=== PATIENT | female | born 1940 | race Caucasian/White ===

== ENCOUNTER 2017-01-22 10:30 | Outpatient (CLI) | payer MEDICARE, OTHER ==
--- NOTE | 2017-01-28 12:04 | Mammography Report ---
EXAM: Digital screening mammogram 01/22/2017. CLINICAL INDICATION: A 76-year-old with family history of breast cancer for screening. COMPARISON: 11/2015, 11/2014, 10/2013, 10/2012, 08/2011, 08/2010, 08/2009. TECHNIQUE: Routine CC and MLO projections were obtained of the breasts. FINDINGS: Scattered fibroglandular tissue is present within the breasts. There are no dominant masses, suspicious microcalcifications, or secondary signs of malignancy. In comparison to the previous studies, there are no significant changes. ASSESSMENT: NO MAMMOGRAPHIC EVIDENCE OF MALIGNANCY. NO SIGNIFICANT INTERVAL CHANGES. RECOMMENDATION: Screening mammography is recommended annually. BIRADS category 1 - negative. STANDARD QUALIFYING STATEMENTS 1. This examination was reviewed with the aid of Computed Aided Detection (CAD). 2. A negative x-ray report should not delay biopsy if a dominant or clinically suspicious mass is present. More than 5% of cancers are not identified by x-ray. 3. Dense breasts may obscure an underlying neoplasm. TD: 01/23/2017 14:59 PEPPER
== END 2017-01-22 10:31 | disposition home or self-care (01) ==
LOC: DI.N 10:30
PROVIDERS: ATTEND Family Medicine
DX: Z12.31 Encounter for screening mammogram for malignant neoplasm of breast (principal); Z80.3 Family history of malignant neoplasm of breast
CPT/HCPCS: 77067

== ENCOUNTER 2017-01-24 15:05 | Outpatient (CLI) | payer MEDICARE, OTHER ==
[2017-01-24 14:41] LABS: ALBUMIN/GLOBULIN RATIO 1.3 (1.0-2.2); BILIRUBIN,TOTAL 0.6 mg/dL (0.2-1.0); BUN - BLOOD UREA NITROGEN 13 mg/dL (6-20); CALCIUM 9.2 mg/dL (8.5-10.3); CARBON DIOXIDE - CO2 26 mmol/L (21-32); CHLORIDE 106 mmol/L (101-111); CHOL/HDL RATIO 2.6 (<4.4); CHOLESTEROL 196 mg/dL; CREATININE 0.8 mg/dL (0.4-1.0); GFR - MDRD 70 (>89); GLUCOSE 90 mg/dL (70-100); HDL CHOLESTEROL 74 mg/dL; LDL/HDL RATIO 1.4 (<4.4); POTASSIUM 4.3 mmol/L (3.5-5.0); SODIUM 139 mmol/L (135-145); TOTAL PROTEIN 6.8 g/dL (6.7-8.2); TRIGLYCERIDES 83 mg/dL; VLDL CHOLESTEROL 17 mg/dL
[2017-01-24 14:48] LABS: THYROID STIMULATING HORMONE 6.39 uIU/mL (0.34-5.60)
== END 2017-01-24 15:06 | disposition home or self-care (01) ==
LOC: LAB.WCP 15:05
PROVIDERS: ATTEND Family Medicine
DX: Z00.00 Encounter for general adult medical examination without abnormal findings (principal); E03.9 Hypothyroidism, unspecified; D64.9 Anemia, unspecified; E55.9 Vitamin D deficiency, unspecified; K51.90 Ulcerative colitis, unspecified, without complications
CPT/HCPCS: 36415; 80053; 80061; 82306; 84439; 84443

== ENCOUNTER 2017-07-12 08:00 | Outpatient (CLI) | payer MEDICARE, OTHER | END 2017-07-12 08:01 | disposition home or self-care (01) | LOC: LAB.WCP 08:00 | PROVIDERS: ATTEND Family Medicine | DX: E03.9 Hypothyroidism, unspecified (principal) | CPT/HCPCS: 36415; 84443 ==

== ENCOUNTER 2017-09-30 15:13 | Outpatient (CLI) | payer MEDICARE, OTHER ==
--- NOTE | 2017-10-01 08:48 | DEXA Report ---
Procedure Date: 09/30/2017 Accession Number: [id number] / [id number] Procedure: DEX - Dexa Spine and/or Hip CPT Code: FULL RESULT: EXAM: DUAL EMISSION X-RAY ABSORPTIOMETRY (DXA) SCAN EXAM DATE: 09/30/2017 03:41 PM. CLINICAL HISTORY: Postmenopausal. COMPARISON: None. TECHNIQUE: Dual energy x-ray absorptiometry (DXA) was performed on a [employer] System. Regions measured at the AP spine, femoral neck, and if needed, forearm. TECHNIQUE LIMITATIONS/EXCLUSIONS: None. FINDINGS: Lumbar Spine: Bone mineral density 1.050 g/sq cm, T-score -1.0, Z-score 0.9. Femoral Neck: Bone mineral density 0.694 g/sq cm, T-score -2.5, Z-score -0.4. Total Hip: Bone mineral density 0.664 g/sq cm, T-score -2.7, Z-score -0.8. IMPRESSION: Osteoporosis. The fracture risk is high. World Health Organization (WHO) Reporting guidelines (based on lowest BMD) for postmenopausal and perimenopausal women, men age 50 years and older: Normal: T-score at or greater than -1.0 Osteopenia: T-score between -1.1 to -2.4 Osteoporosis: T-score at or less than -2.5 RADIA
== END 2017-09-30 15:14 | disposition home or self-care (01) ==
LOC: DI 15:13
PROVIDERS: ATTEND Family Medicine
DX: M81.0 Age-related osteoporosis without current pathological fracture (principal); Z78.0 Asymptomatic menopausal state
CPT/HCPCS: 77080

== ENCOUNTER 2017-11-25 09:33 | Day surgery (SDC) | payer MEDICARE, OTHER ==
[2017-11-25] MEDS ORDERED: LACTATED RINGERS 1,000 ML IV ONE (10:06)
[2017-11-25] MEDS ORDERED: MIDAZOLAM 2 MG/2 ML VIAL IVP ONE (11:41)
[2017-11-25] MEDS ORDERED: fentaNYL 250 MCG/5 ML VIAL IVP ONE (11:41)
[2017-11-25 11:54] VITALS: BP 101/52
== END 2017-11-25 09:34 | disposition home or self-care (01) ==
LOC: SDS 09:33
PROVIDERS: ATTEND Surgery
PROC: 0DBN8ZX Excision of Sigmoid Colon, Via Natural or Artificial Opening Endoscopic, Diagnostic (ICD-10-PCS; 2017-11-25)
PROC: 0DBH8ZX Excision of Cecum, Via Natural or Artificial Opening Endoscopic, Diagnostic (ICD-10-PCS; 2017-11-25)
PROC: 0DBK8ZZ Excision of Ascending Colon, Via Natural or Artificial Opening Endoscopic (ICD-10-PCS; principal; 2017-11-25 10:45)
DX: Z12.11 Encounter for screening for malignant neoplasm of colon (principal); D12.0 Benign neoplasm of cecum; K63.5 Polyp of colon; K51.90 Ulcerative colitis, unspecified, without complications; K62.89 Other specified diseases of anus and rectum; R15.9 Full incontinence of feces; Z86.010 Personal history of colon polyps; K64.8 Other hemorrhoids; Z80.0 Family history of malignant neoplasm of digestive organs
CPT/HCPCS: 45380; J3010; J7120

== ENCOUNTER 2018-01-28 10:19 | Outpatient (CLI) | payer MEDICARE, OTHER ==
--- NOTE | 2018-01-29 08:47 | Mammography Report ---
Reason: SCREENING MAMMO Procedure Date: 01/28/2018 Accession Number: [id number] / [id number] Procedure: MGN - Screening Mammo Dig Bilat CPT Code: FULL RESULT: EXAM: Screening Mammo Dig Bilat DATE: 01/28/2018 10:34 AM CLINICAL HISTORY: Screening. Family history breast cancer in daughter age 57. No reported personal history of breast cancer. TECHNIQUE: Bilateral CC and MLO views were obtained. COMPARISON: 01/22/2017 through 10/15/2013 FINDINGS: The breasts demonstrate scattered fibroglandular densities bilaterally. Bilateral breasts: There are no suspicious masses, calcifications or areas of distortion. IMPRESSION: Negative examination RECOMMENDATION: Routine annual screening unless otherwise clinically indicated. BI-RADS CATEGORY 1: Negative STANDARD QUALIFYING STATEMENTS: 1. This examination was reviewed with the aid of Computer-Aided Detection (CAD). 2. A negative or benign imaging report should not preclude biopsy if clinically suspicious findings are present. 3. Dense breasts may obscure an underlying neoplasm. 4. This examination was reviewed without the aid of 3D breast imaging (tomosynthesis).
== END 2018-01-28 10:20 | disposition home or self-care (01) ==
LOC: DI.N 10:19
DX: Z12.31 Encounter for screening mammogram for malignant neoplasm of breast (principal); Z80.3 Family history of malignant neoplasm of breast
CPT/HCPCS: 77067

== ENCOUNTER 2018-03-31 08:00 | Outpatient (CLI) | payer MEDICARE, OTHER | END 2018-03-31 23:59 | disposition home or self-care (01) | LOC: LAB.R 08:00 | PROVIDERS: ATTEND Physician Assistant Medical | DX: N39.0 Urinary tract infection, site not specified (principal) | CPT/HCPCS: 87086 ==

== ENCOUNTER 2018-10-23 11:29 | Outpatient (CLI) | payer MEDICARE, OTHER | END 2018-10-23 23:59 | disposition home or self-care (01) | LOC: LAB.R 11:29 | PROVIDERS: ATTEND Family Medicine | DX: N39.0 Urinary tract infection, site not specified (principal) | CPT/HCPCS: 87077; 87086; 87181 ==

== ENCOUNTER 2018-12-05 08:30 | Outpatient (CLI) | payer MEDICARE, OTHER | END 2018-12-05 23:59 | disposition home or self-care (01) | LOC: LAB.R 08:30 | PROVIDERS: ATTEND Family Medicine | DX: N39.0 Urinary tract infection, site not specified (principal) | CPT/HCPCS: 87077; 87086; 87181 ==

== ENCOUNTER 2019-01-30 10:14 | Outpatient (CLI) | payer MEDICARE, OTHER ==
--- NOTE | 2019-02-02 08:40 | Mammography Report ---
Reason: SCREENING MAMMO Procedure Date: 01/30/2019 Accession Number: [id number] / [id number] Procedure: MGN - Screening Mammo Dig Bilat CPT Code: Final Report FULL RESULT: EXAM: Screening Mammo Dig Bilat DATE: 01/30/2019 10:40 AM CLINICAL HISTORY: Screening encounter. Family history of breast cancer in the daughter at the age of 58. TECHNIQUE: (B) - Bilateral CC and MLO views were obtained. COMPARISON: 01/28/2018 through 10/16/2012. PARENCHYMAL PATTERN: (A) - The breast(s) demonstrate(s) scattered fibroglandular densities. FINDINGS: There are typically benign vascular calcifications. There are no suspicious masses, calcifications, or areas of distortion. IMPRESSION: Benign findings. BI-RADS category 2. RECOMMENDATION: (ANNUAL) - Recommend routine annual screening mammography. BI-RADS CATEGORY: (2) - Benign Findings. STANDARD QUALIFYING STATEMENTS: 1. This examination was not reviewed with the aid of Computer-Aided Detection (CAD). 2. A negative or benign imaging report should not preclude biopsy if clinically suspicious findings are present. 3. Dense breasts may obscure an underlying neoplasm. 4. This examination was reviewed without the aid of 3D breast imaging (tomosynthesis).
== END 2019-01-30 10:15 | disposition home or self-care (01) ==
LOC: DI.N 10:14
DX: Z12.31 Encounter for screening mammogram for malignant neoplasm of breast (principal); Z80.3 Family history of malignant neoplasm of breast
CPT/HCPCS: 77067

== ENCOUNTER 2019-11-23 11:00 | Outpatient (CLI) | payer MEDICARE, OTHER ==
[2019-11-30 15:55] LABS: BILIRUBIN,URINE NEGATIVE (NEGATIVE); GLUCOSE, URINE (UA) NEGATIVE (NEGATIVE); KETONES,URINE (UA) NEGATIVE (NEGATIVE); LEUKOCYTE ESTERASE, URINE LARGE (NEGATIVE); NITRITE,URINE POSITIVE (NEGATIVE); OCCULT BLOOD,URINE NEGATIVE (NEGATIVE); PROTEIN,URINE NEGATIVE (NEGATIVE); UROBILINOGEN,URINE 0.2 (NORMAL) E.U./dL (NORMAL)
[2019-11-30 15:56] LABS: CLARITY,URINE HAZY (CLEAR); SQUAMOUS EPITHELIAL CELL,UR FEW Squamous (<= Few)
[2019-11-30 15:57] LABS: BACTERIA,URINE Few /HPF (None Seen)
== END 2019-11-23 23:59 | disposition home or self-care (01) ==
LOC: LAB.R 11:00
PROVIDERS: ATTEND Nurse Practitioner
DX: R30.0 Dysuria (principal)
CPT/HCPCS: 81001; 81003; 87077; 87086; 87181

== ENCOUNTER 2020-02-02 08:57 | Outpatient (CLI) | payer MEDICARE, OTHER ==
--- NOTE | 2020-02-03 15:03 | Mammography Report ---
BILATERAL DIGITAL SCREENING MAMMOGRAM 3D/2D: 02/02/2020 CLINICAL: Family history of breast cancer. Routine screening. Comparison is made to exams dated: 01/30/2019 mammogram, 01/28/2018 mammogram, 01/22/2017 mammogram, 11/25/2015 mammogram, 11/12/2014 mammogram, and 10/15/2013 mammogram - [facility]. T he tissue of both breasts is predominantly fatty. There is a focal asymmetry in the left breast at 11 o'clock middle depth. No other significant masses, calcifications, or other findings are seen in either breast. IMPRESSION: INCOMPLETE: NEEDS ADDITIONAL IMAGING EVALUATION The focal asymmetry in the left breast is indeterminate. Additional views with possible ultrasound a re recommended. This exam was interpreted at Station ID: [id number]. NOTE: For mammograms, a report in lay terms will be sent to the patient. Approximately 15% of breast malignancies will not be visualized mammographically. In the management of a palpable breast mass, a negative mammogram must not discourage biopsy of a clinically suspicious lesion. Electronically Signed By: Oumou Mcintyre M.D. lk/:02/02/2020 09:59:43 ACR BI-RADS Category 0: Incomplete 3340F PARENCHYMAL PATTERN: (F) - The breast(s) demonstrate(s) diffuse fatty replacement. BI-RADS CATEGORY: (0) - 0 Mammo and [place] [id number] Immediate follow-up LATERALITY: (B)
== END 2020-02-02 08:58 | disposition home or self-care (01) ==
LOC: DI.N 08:57
DX: Z12.31 Encounter for screening mammogram for malignant neoplasm of breast (principal); Z80.3 Family history of malignant neoplasm of breast; N64.89 Other specified disorders of breast
CPT/HCPCS: 77067

== ENCOUNTER 2020-03-10 10:14 | Outpatient (CLI) | payer MEDICARE, OTHER ==
--- NOTE | 2020-03-11 09:53 | Mammography Report ---
UNILATERAL LEFT DIGITAL DIAGNOSTIC MAMMOGRAM 3D/2D: 03/10/2020 CLINICAL: Patient returns today to evaluate an asymmetry in left breast. Comparison is made to exams dated: 02/02/2020 mammogram, 01/30/2019 mammogram, and 01/28/2018 mammog [facility]. There are scattered fibroglandular elements in left breast. The previously seen focal asymmetry in the left breast is no longer visualized, presumably secondary to superimposed fibroglandular breast tissue on the prior exam. No significant masses, calcifications, or other findings are seen in the breast. IMPRESSION: NEGATIVE There is no mammographic evidence of malignancy. A 1 year screening mammogram is recommended. This exam was interpreted at Station ID: [id number]. NOTE: For mammograms, a report in lay terms will be sent to the patient. Approximately 15% of breast malignancies will not be visualized mammographically. In the management of a palpable breast mass, a negative mammogram must not discourage biopsy of a clinically suspicious lesion. Electronically Signed By: Donis coto/yariel:03/10/2020 11:32:00 ACR BI-RADS Category 1: Negative 3341F PARENCHYMAL PATTERN: (A) - The breast(s) demonstrate(s) scattered fibroglandular densities. BI-RADS CATEGORY: (1) - 1 RECOMMENDATION: (ANNUAL) - Recommend routine annual screening mammography. [id number] 1 year screening LATERALITY: (B)
== END 2020-03-10 10:15 | disposition home or self-care (01) ==
LOC: DI 10:14
PROVIDERS: ATTEND Nurse Practitioner
DX: R92.8 Other abnormal and inconclusive findings on diagnostic imaging of breast (principal)

== ENCOUNTER 2021-03-14 09:07 | Outpatient (CLI) | payer MEDICARE, OTHER ==
--- NOTE | 2021-03-15 10:15 | Mammography Report ---
BILATERAL DIGITAL SCREENING MAMMOGRAM 3D/2D: 03/14/2021 CLINICAL: Family history of breast cancer. Routine screening. Comparison is made to exams dated: 03/10/2020 mammogram, 02/02/2020 mammogram, and 01/30/2019 mammogr am - [facility]. There are scattered fibroglandular elements in both breasts. No significant masses, calcifications, or other findings are seen in either breast. There has been no significant interval change. IMPRESSION: NEGATIVE There is no mammographic evidence of malignancy. A 1 year screening mammogram is recommended. This exam was interpreted at Station ID: [id number]. NOTE: For mammograms, a report in lay terms will be sent to the patient. Approximately 15% of breast malignancies will not be visualized mammographically. In the management of a palpable breast mass, a negative mammogram must not discourage biopsy of a clinically suspicious lesion. Electronically Signed By: Donis Gonzalez M.D. ar/penrad:03/14/2021 12:41:03 ACR BI-RADS Category 1: Negative 3341F PARENCHYMAL PATTERN: (A) - The breast(s) demonstrate(s) scattered fibroglandular densities. BI-RADS CATEGORY: (1) - 1 RECOMMENDATION: (ANNUAL) - Recommend routine annual screening mammography. [id number] 1 year screening LATERALITY: (B)
== END 2021-03-14 09:08 | disposition home or self-care (01) ==
LOC: DI.N 09:07
DX: Z12.31 Encounter for screening mammogram for malignant neoplasm of breast (principal); Z80.3 Family history of malignant neoplasm of breast

== ENCOUNTER 2021-06-13 11:27 | Day surgery (SDC) | payer MEDICARE, OTHER ==
[2021-06-13] MEDS ORDERED: LACTATED RINGERS 1,000 ML IV ONE (11:37)
--- NOTE | 2021-06-13 12:06 | ANESTHESIA ---
Pre-Anesthesia VS, & Labs - Diagnosis screening, family history of colon cancer - Procedure colonoscopy Vital Signs: Temp Pulse Resp BP Pulse Ox 36.6 C 98 16 166/75 H 96 06/13/21 11:37 06/13/21 11:37 06/13/21 11:37 06/13/21 11:37 06/13/21 11:37 Height: 5 ft 1 in Weight (kg): 61 kg Body Mass Index: 25.4 BMI Classification: Overweight - NPO >8 hours - Is Patient ?: No - Lab Results Lab results reviewed: Yes Home Medications and Allergies Calcium Carbonate/Vitamin D3 [Calcium 500 + Vit D Caplet] 1 each PO DAILY 10/09/12 Multivitamin [Multivitamins] 1 each PO DAILY 10/09/12 Ferrous Sulfate 65 mg PO TIDWM 11/22/17 Allergies/Adverse Reactions: Allergies Allergy/AdvReac Type Severity Reaction Status Date / Time No Known Drug Allergies Allergy Verified 06/12/21 14:14 Anes History & Medical History - Anesthetic History Anesthesia Complications: reports: No previous complications Family history of Anesthesia Complications: Denies Family history of Malignant Hyperthermia: Denies - Medical History Cardiovascular: reports: None, Other (occ PACs on moniter) Pulmonary: reports: None Gastrointestinal: reports: Colon polyps, Other Urinary: reports: Frequency Musculoskeletal: reports: None Endocrine/Autoimmune: reports: None Skin: reports: Psoriasis - Surgical History General: reports: Colonoscopy Eyes Ears Nose Throat (EENT): reports: Cataracts Orthopedic: reports: Other Exam General: Alert, Oriented x3, Cooperative, No acute distress Dental: WNL Mouth Openin Fingerbreadth Neck Mobility: Normal Mallampati classification: I Plan Anesthesia Type: General, Total IV Consent for Procedure(s) Verified and Reviewed: Yes Code Status: Attempt Resuscitation ASA classification: 2-Mild systemic disease Is this case an emergency?: No
[2021-06-13] MEDS ORDERED: PROPOFOL 500 MG/50 ML 500 MG/50 ML VIAL ONE (12:38)
[2021-06-13] MEDS ORDERED: LACTATED RINGERS 400 ML IV ONE (13:23)
[2021-06-13 13:24] VITALS: BP 95/41
--- NOTE | 2021-06-13 13:33 | ANESTHESIA POST OP EVALUATION ---
Anesthesia Post Eval - Post Anesthesia Eval Vitals: Last Vital Signs Temp 36.5 C 06/13/21 13:20 Pulse 78 06/13/21 13:20 Resp 16 06/13/21 13:20 BP 95/41 L 06/13/21 13:20 Pulse Ox 98 06/13/21 13:20 CV Function Including HR & BP: Stable Pain Control: Satisfactory Nausea & Vomiting: Negative Mental Status: Baseline Respiratory Status: Airway Patent Hydration Status: Satisfactory Anesthesia Complications: None
== END 2021-06-13 11:28 | disposition home or self-care (01) ==
LOC: SDS 11:27
PROVIDERS: ATTEND Surgery
PROC: 0DBK8ZX Excision of Ascending Colon, Via Natural or Artificial Opening Endoscopic, Diagnostic (ICD-10-PCS; principal; 2021-06-13 13:00)
DX: Z12.11 Encounter for screening for malignant neoplasm of colon (principal); D12.2 Benign neoplasm of ascending colon; Z80.0 Family history of malignant neoplasm of digestive organs; Z86.010 Personal history of colon polyps
CPT/HCPCS: 45380; J7120

== ENCOUNTER 2021-06-21 14:22 | Outpatient (CLI) | payer MEDICARE, OTHER ==
--- NOTE | 2021-06-21 15:01 | DEXA Report ---
PROCEDURE: Dexa Spine and/or Hip INDICATIONS: OSTEOPOROSIS TECHNIQUE: Dual energy x-ray absorptiometry (DXA) was performed on a [employer] System. Regions measur ed are the AP Spine, femoral neck, and if needed forearm. COMPARISON: None. FINDINGS: Lumbar Spine: Bone Mineral Density 1.254 g/cm/cm,T score 0.5, unremarkable Left Hip: Bone Mineral Density 0.727 g/cm/cm,T score -2.2, severe osteopenai Left Femoral Neck: Bone Mineral Density 0.698 g/cm/cm, T score -2.4, severe ostepenia (T score greater or equal to -1.0: NORMAL) (T score from -1.1 to -2.4: OSTEOPENIA) (T score less than or equal to -2.5 to: OSTEOPOROSIS) Impression: Severe osteopenia in the left hip and femoral neck. Patients with diagnosis of osteoporosis or osteopenia should have regular bone mineral density assess ment. For those eligible for Medicare, routine testing is allowed once every 2 years. Testing frequ ency can be increased for patients who have rapidly progressing disease or for those who are receivin g medical therapy to restore bone mass. Reviewed by: Alda Winter MD on 06/21/2021 3:00 PM PDT Approved by: Alda Winter MD on 06/21/2021 3:00 PM PDT Station ID: [id number]
== END 2021-06-21 14:23 | disposition home or self-care (01) ==
LOC: DI 14:22
PROVIDERS: ATTEND Internal Medicine
DX: M85.89 Other specified disorders of bone density and structure, multiple sites (principal)

== ENCOUNTER 2021-08-04 23:24 | Emergency (ER) | payer MEDICARE, OTHER ==
[2021-08-04] MEDS ORDERED: OXYMETAZOLINE HCL 100 SPRAYS BOTTLE NAS STA (23:31)
[2021-08-04] MEDS ORDERED: LIDOCAINE VISCOUS 2% 15 ML UDC MM STA (23:32)
--- NOTE | 2021-08-05 01:02 | ED Physician Documentation ---
PD HPI HEENT - Stated complaint Stated Complaint: NOSE BLEED - Chief complaint Chief Complaint: Heent - History obtained from History obtained from: Patient - History of Present Illness Timing - onset: How many days ago (2) Timing - details: Abrupt onset, Intermittant Location: Nose Improves: Nothing Worsens: Other (no inciting/exacerbating factors) Associated symptoms: No: Fever, Congestion Similar symptoms before: Has not had sx before Recently seen: Not recently seen - Additional information Additional information: c/o 2 days of intermittent, spontaneous/atraumatic right nare epistaxis. she is not on blood thinners. Denies h/o similar problem. The nosebleeds were stopping with pressure over these past 2 days until tonight when it has been persistent Review of Systems Nose: reports: Epistaxis. denies: Rhinorrhea / runny nose, Congestion, Sinus pressure / pain PD PAST MEDICAL HISTORY - Past Medical History Past Medical History: No Cardiovascular: None, Other Respiratory: None Endocrine/Autoimmune: None GI: Colon polyps, Other : Frequency HEENT: Dental implants Psych: Depression Musculoskeletal: None Derm: Psoriasis - Past Surgical History General: Colonoscopy Ortho: Other HEENT: Cataracts - Present Medications Home Medications: Ambulatory Orders Medication Instructions Recorded Confirmed Calcium Carbonate/Vitamin D3 1 each PO DAILY 10/09/12 11/22/17 [Calcium 500 + Vit D Caplet] Multivitamin [Multivitamins] 1 each PO DAILY 10/09/12 11/22/17 Ferrous Sulfate 65 mg PO TIDWM 11/22/17 11/22/17 - Allergies Allergies/Adverse Reactions: Allergies Allergy/AdvReac Type Severity Reaction Status Date / Time No Known Drug Allergies Allergy Verified 08/04/21 23:43 - Social History Does the pt smoke?: No Smoking Status: Never smoker Does the pt drink ETOH?: No Does the pt have substance abuse?: No - Immunizations Immunizations are current?: Yes PD ED PE NORMAL - Vitals Vital signs reviewed: Yes - General General: Alert and oriented X 3, No acute distress, Well developed/nourished PD ED PE EXPANDED - HEENT HEENT: Right nares epsitaxis Results - Vitals Vitals: Oxygen O2 Source Room air Procedures - Epistaxis Site: Right, Anterior Preparation: Afrin, Lidocaine, Clamp / pressure applied Treatment: Silver Nitrate, Anterior rhinorocket, Other (silver nitrate did not result in hemostasis and thus anterior rapid rhino placed) Other: Observed - no bleeding, Pt tolerated well PD MEDICAL DECISION MAKING - ED course Complexity details: re-evaluated patient, considered differential, d/w patient ED course: brisk right nare bleeding from visualized anterior source identified. Cotton ball with afrin and lidocaine placed in the nare and removed 10 minutes later; the bleeding had stopped but when silver nitrate applied to the area there was immediate recurrence of bleeding. 4.5 cm anterior rapid rhino placed and there was no subsequent bleeding (around the device anteriorly nor posteriorly (by patient report and examination of posterior o/p)) after over 20 minutes of observation Departure - Departure Disposition: 01 Home, Self Care Clinical Impression: Epistaxis Condition: Good Instructions: ED Nosebleed, ED Nasal Packing Anterior Removable Comments: As we discussed, it would be best to have your primary care provider remove the packing so that if it starts bleeding again they can try to address the bleeding in the office. However, if you want to try to remove the packing yourself, you can do so using the syringe to deflate the balloon as we discussed. You should not remove the packing until Saturday, but waiting another day or two is reasonable. Discharge Date/Time: 08/05/21 02:55
[2021-08-05] MEDS ORDERED: SILVER NITRATE APPLICATOR TOP STA (01:03)
[2021-08-05 01:07] VITALS: BP 138/76
== END 2021-08-05 02:55 | disposition home or self-care (01) ==
LOC: ED 23:24
DX: R04.0 Epistaxis (principal)
CPT/HCPCS: 30901; 99281; 99282; A9270

== ENCOUNTER 2021-08-31 08:00 | Outpatient (CLI) | payer MEDICARE, OTHER | END 2021-08-31 23:59 | disposition home or self-care (01) | LOC: LAB.N 08:00 | PROVIDERS: ATTEND Nurse Practitioner | DX: N39.0 Urinary tract infection, site not specified (principal) | CPT/HCPCS: 87086; 87181 ==

== ENCOUNTER 2022-08-30 08:45 | Outpatient (CLI) | payer MEDICARE, OTHER | END 2022-08-30 08:46 | disposition short-term general hospital (02) | LOC: EMS 08:45 | DX: R42 Dizziness and giddiness (principal); R00.0 Tachycardia, unspecified; F41.9 Anxiety disorder, unspecified | CPT/HCPCS: A0425; A0429; A0888 ==

== ENCOUNTER 2023-08-30 15:06 | Outpatient (CLI) | payer MEDICARE, OTHER ==
--- NOTE | 2023-08-30 18:44 | DEXA Report ---
PROCEDURE: Dexa Spine and/or Hip INDICATIONS: POST MENOPAUSAL TECHNIQUE: Dual energy x-ray absorptiometry (DXA) was performed on a [employer] System. Regions measur ed are the AP Spine, femoral neck, and if needed forearm. COMPARISON: DEXA 06/21/2021 FINDINGS: Lumbar Spine: Bone Mineral Density: 1.027 g/cm/cm,T score: -1.1. Since the most recent prior study, there has been a statistically significant decrease in bone mineral density by 5.9 percent. Left Femoral Neck: Bone Mineral Density: 0.657 g/cm/cm, T score: -2.7. Left Hip: Bone Mineral Density: 0.664 g/cm/cm,T score: -2.7. Since the most recent prior study, there has been a statistically significant decrease in bone mineral density by 8.7 percent. (T score greater or equal to -1.0: NORMAL) (T score from -1.1 to -2.4: OSTEOPENIA) (T score less than or equal to -2.5 to: OSTEOPOROSIS) Impression: By WHO criteria, this patient has osteoporosis. Interval statistical decrease in bone mineral density of the lumbar spine. Interval statistical decre ase in bone mineral density of the hip. Patients with diagnosis of osteoporosis or osteopenia should have regular bone mineral density assess ment. For those eligible for Medicare, routine testing is allowed once every 2 years. Testing frequ ency can be increased for patients who have rapidly progressing disease or for those who are receivin g medical therapy to restore bone mass. Reviewed by: Donis Gonzalez MD on 08/30/2023 6:43 PM PDT Approved by: Donis Gonzalez MD on 08/30/2023 6:43 PM PDT Station ID: [id number]
== END 2023-08-30 15:07 | disposition home or self-care (01) ==
LOC: DI 15:06
PROVIDERS: ATTEND Nurse Practitioner Family
DX: M81.0 Age-related osteoporosis without current pathological fracture (principal)